=== PATIENT | male | born 1950 | race Caucasian/White ===

== ENCOUNTER 2022-05-28 17:00 | Inpatient (IN) ==
[~2022-05-28 17:00] MED LIST: HEPARIN 5,000 UNIT/1 ML VIAL ONE; HEPARIN/NACL 0.9% 2 UNITS/ML 2,000 UNIT/1,000 ML BAG IV ONE; MIDAZOLAM 2 MG/2 ML VIAL ONE; fentaNYL 100 MCG/2 ML VIAL ONE
[2022-05-28] MEDS ORDERED: ENOXAPARIN 60 MG/0.6 ML SYRINGE ONE (17:22)
[2022-05-28] MEDS ORDERED: HEPARIN/NACL 0.9% 2 UNITS/ML 1,000 UNIT/500 ML BAG IV ONE (17:33)
[2022-05-28] MEDS ORDERED: EPTIFIBATIDE 75 MG/100 ML BOTTLE IV ONE (17:37)
[2022-05-28] MEDS ORDERED: ZALEPLON 5 MG CAPSULE PO PRN (18:13)
[2022-05-28] MEDS ORDERED: CLOPIDOGREL 300 MG TABLET ONE (18:16)
[2022-05-28] MEDS ORDERED: GLUCAGON 1 MG VIAL IM PRN (18:17)
[2022-05-28] MEDS ORDERED: CETIRIZINE 10 MG TABLET PO PRN (18:18)
[2022-05-28] MEDS ORDERED: DEXTROSE 10% 250 ML BAG IV PRN (20:09)
[2022-05-28] MEDS ORDERED: SODIUM CHLORIDE 0.9% 1,000 ML IV SCH (20:30)
[2022-05-28] MEDS: ESCITALOPRAM 10 MG TABLET PO SCH (20:48)
[2022-05-28] MEDS: INSULIN REGULAR 100 UNIT/ML SUBCUT SCH (20:48)
[2022-05-28] MEDS: ROSUVASTATIN 20 MG TABLET PO SCH (20:48)
[2022-05-28] MEDS: EZETIMIBE 10 MG TABLET PO SCH (20:48)
[2022-05-28] MEDS: METOPROLOL TARTRATE 25 MG TABLET PO SCH (20:48)
[2022-05-28] MEDS ORDERED: ACETAMINOPHEN 325 MG TABLET PO PRN (21:36)
[2022-05-28] MEDS: FLUTICASONE 50 MCG NASAL SPRAY 16 GM BOTTLE BOTH NARES SCH (21:44)
[2022-05-29 02:42] LABS: Basophils # 0.1 10*3/uL (0.0-0.2); Basophils % 0.7 % (0.0-0.8); Eosinophils # 0.2 10*3/uL (0.0-0.87); Eosinophils % 1.9 % (0.00-10.9); Hematocrit 38.1 VOL% (42.0-52.0); Hemoglobin 12.5 GM/DL (14.0-18.0); Immature Granulocytes % 0.3 %; Immature Granulocytes Absolute 0.03 #; Lymphocytes # 4.4 10*3/uL (1.4-4.0); Lymphocytes % 40.4 % (21.2-54.2); Mean Corpuscular HGB Conc 32.8 GM/DL (32-36); Mean Corpuscular Volume 95.5 FL (87-102); Mean Platelet Volume 8.7 FL (9.6-12.0); Monocytes # 1.2 10*3/uL (0.11-0.8); Monocytes % 11.1 % (1.7-12.7); Neutrophils % 45.6 % (38.7-73.9); Platelet Count 271 T/CUMM (130-400); Red Blood Count 3.99 MC/CUMM (3.8-5.5); Red Cell Distribution Width 14.4 % (9.3-17.3)
[2022-05-29 03:00] LABS: Calcium 8.7 MG/DL (8.5-10.1); Osmolality,Calculated 278.5 MOS/KG (273-304); Potassium 5.1 MMOL/L (3.5-5.1)
[2022-05-29] MEDS: ONDANSETRON 4 MG/2 ML VIAL IV PRN (06:09)
[2022-05-29] MEDS: ACETAMINOPHEN 325 MG TABLET PO PRN (07:08)
[2022-05-29] MEDS: INSULIN REGULAR 100 UNIT/ML SUBCUT SCH ×4 (07:50→20:14)
[2022-05-29] MEDS ORDERED: NITROGLYCERIN SL 0.4 MG TABLET SL ONE (08:25)
[2022-05-29] MEDS: NITROGLYCERIN SL 0.4 MG TABLET SL PRN ×3 (08:27→08:39)
[2022-05-29] MEDS ORDERED: ALUM/MAG/SIMETH/LIDO VISC 1:1 30 ML BOTTLE PO ONE (08:50)
[2022-05-29] MEDS: ISOSORBIDE MONONITRATE 30 MG TABLET PO SCH (08:56)
[2022-05-29] MEDS: ENOXAPARIN 40 MG/0.4 ML SYRINGE SUBCUT SCH (09:42)
[2022-05-29] MEDS: METOPROLOL TARTRATE 25 MG TABLET PO SCH ×2 (09:44→20:36)
[2022-05-29] MEDS: CLOPIDOGREL 75 MG TABLET PO SCH (09:44)
[2022-05-29] MEDS: lisinopriL 10 MG TABLET PO SCH (09:44)
[2022-05-29] MEDS: predniSONE 10 MG TABLET PO SCH (09:44)
[2022-05-29] MEDS: PANTOPRAZOLE 40 MG TABLET PO SCH (09:44)
[2022-05-29] MEDS: ASPIRIN EC 81 MG TABLET PO SCH (09:44)
[2022-05-29] MEDS: FLUTICASONE 50 MCG NASAL SPRAY 16 GM BOTTLE BOTH NARES SCH ×2 (09:45→20:36)
[2022-05-29] MEDS: FOLIC ACID 1 MG TABLET PO SCH (09:46)
[2022-05-29] MEDS: ESCITALOPRAM 10 MG TABLET PO SCH (20:36)
[2022-05-29] MEDS: ROSUVASTATIN 20 MG TABLET PO SCH (20:36)
[2022-05-29] MEDS: EZETIMIBE 10 MG TABLET PO SCH (20:36)
[2022-05-29] MEDS ORDERED: MONTELUKAST 10 MG TABLET PO SCH ×2 (21:00)
[2022-05-30 04:20] LABS: Basophils # 0.1 10*3/uL (0.0-0.2); Basophils % 0.5 % (0.0-0.8); Eosinophils # 0.1 10*3/uL (0.0-0.87); Eosinophils % 1.3 % (0.00-10.9); Hematocrit 38.8 VOL% (42.0-52.0); Hemoglobin 12.8 GM/DL (14.0-18.0); Immature Granulocytes % 0.2 %; Immature Granulocytes Absolute 0.02 #; Lymphocytes % 30.5 % (21.2-54.2); Mean Corpuscular Volume 95.8 FL (87-102); Mean Platelet Volume 8.8 FL (9.6-12.0); Monocytes # 1.2 10*3/uL (0.11-0.8); Monocytes % 12.1 % (1.7-12.7); Neutrophils % 55.4 % (38.7-73.9); Platelet Count 260 T/CUMM (130-400); Red Blood Count 4.05 MC/CUMM (3.8-5.5); Red Cell Distribution Width 14.4 % (9.3-17.3); White Blood Count 9.8 T/CUMM (4-12)
[2022-05-30] MEDS: ACETAMINOPHEN 325 MG TABLET PO PRN (04:21)
[2022-05-30 04:42] LABS: Calcium 9.1 MG/DL (8.5-10.1); Osmolality,Calculated 275.5 MOS/KG (273-304); Potassium 3.8 MMOL/L (3.5-5.1)
[2022-05-30] MEDS: INSULIN REGULAR 100 UNIT/ML SUBCUT SCH ×2 (07:30→11:19)
[2022-05-30] MEDS: CLOPIDOGREL 75 MG TABLET PO SCH (08:08)
[2022-05-30] MEDS: METOPROLOL TARTRATE 25 MG TABLET PO SCH (08:08)
[2022-05-30] MEDS: predniSONE 10 MG TABLET PO SCH (08:08)
[2022-05-30] MEDS: PANTOPRAZOLE 40 MG TABLET PO SCH (08:08)
[2022-05-30] MEDS: ISOSORBIDE MONONITRATE 30 MG TABLET PO SCH (08:08)
[2022-05-30] MEDS: lisinopriL 10 MG TABLET PO SCH (08:08)
[2022-05-30] MEDS: FOLIC ACID 1 MG TABLET PO SCH (08:08)
[2022-05-30] MEDS: ASPIRIN EC 81 MG TABLET PO SCH (08:08)
[2022-05-30] MEDS: FLUTICASONE 50 MCG NASAL SPRAY 16 GM BOTTLE BOTH NARES SCH (08:10)
[2022-05-30] MEDS: ENOXAPARIN 40 MG/0.4 ML SYRINGE SUBCUT SCH (08:35)
[2022-05-30] MEDS: ONDANSETRON 4 MG/2 ML VIAL IV PRN (08:39)
[2022-05-30] MEDS ORDERED: LORATADINE 10 MG TABLET PO SCH (09:00)
[2022-05-30] MEDS ORDERED: SIMETHICONE CHEW 125 MG TABLET PO PRN (10:36)
== END 2022-05-30 14:35 | disposition home or self-care (01) | DRG 281 ==
LOC: SUATTDRO → EDSTATUS 17:00 → N.CL 18:02 → N.2E 18:02 → N.SDSINP 18:04 → N.CL 18:04 → N.SDSINP 18:05 → N.ICU 19:05
PROVIDERS: ADMIT Internal Medicine Cardiovascular Disease; ATTEND Internal Medicine Cardiovascular Disease